=== PATIENT | female | born 1955 | race Caucasian/White ===

== ENCOUNTER 2022-06-21 09:53 | Day surgery (SDC) | payer MEDICARE, OTHER ==
[~2022-06-21] VITALS: Ht 162.6 cm; Wt 75.8 kg
[2022-06-21] MEDS ORDERED: VENL25 (10:15)
[2022-06-21] MEDS ORDERED: PANT20 (10:16)
[2022-06-21] MEDS ORDERED: ATOR10 (10:16)
[2022-06-21] MEDS ORDERED: LOSA25 (10:17)
[2022-06-21] MEDS ORDERED: PRAV20 (10:17)
--- NOTE | 2022-06-21 10:58 | NUR ---
06/21/22 1058 Silvia Martinez THREE ATTEMPTS AT IV. FIRST ATTEMPT AT IV BY MA IN RIGHT FOREARM INFILTRATED. SECOND ATTEMPT AT IV BY RN IN RIGHT HAND INFILTRATED. THIRD ATTEMPT AT IV BY RN IN LEFT HAND SUCCESSFUL.
== END 2022-06-21 12:18 | disposition home or self-care (01) ==
LOC: ORSCSDS 09:53
PROVIDERS: Internal Medicine Gastroenterology
PROC: 0DBP8ZX Excision of Rectum, Via Natural or Artificial Opening Endoscopic, Diagnostic (ICD-10-PCS; principal; 2022-06-21 11:15)
DX: Z12.11 Encounter for screening for malignant neoplasm of colon (principal); K63.5 Polyp of colon; K64.4 Residual hemorrhoidal skin tags; I10 Essential (primary) hypertension; Z79.899 Other long term (current) drug therapy
CPT/HCPCS: 88305; J2250; J2704; J7120

== ENCOUNTER → 2025-05-24 | Outpatient (CLI) | payer MEDICARE, OTHER ==
[~2025-05-24] MED LIST: ATOR10; LOSA25; PANT20; PRAV20; VENL25
[2025-05-24 19:27] LABS: BASOPHILS ABSOLUTE AUTO 0.13 K/mm3 (0.00-0.23); BASOPHILS PERCENT AUTO 2 % (0-2); EOSINOPHILS ABSOLUTE AUTO 0.29 K/mm3 (0.00-0.68); EOSINOPHILS PERCENT AUTO 4 % (0-6); Hematocrit 40.1 % (33.0-51.0); Hemoglobin 13.1 g/dL (11.5-16.0); IMMATURE GRAN ABSOLUTE AUTO 0.03 K/mm3 (0.00-0.10); IMMATURE GRAN PERCENT AUTO 0 % (0-1); LYMPHOCYTES ABSOLUTE AUTO 2.16 K/mm3 (0.84-5.20); LYMPHOCYTES PERCENT AUTO 27 % (21-46); MONOCYTES ABSOLUTE AUTO 0.62 K/mm3 (0.16-1.47); MONOCYTES PERCENT AUTO 8 % (4-13); Mean Corpuscular HGB Conc 32.7 g/dL (31.5-36.5); Mean Corpuscular Volume 91 fL (80-100); NEUTROPHILS ABSOLUTE AUTO 4.74 K/mm3 (1.96-9.15); NEUTROPHILS PERCENT AUTO 60 % (41-73); NRBC ABSOLUTE 0.00 K/mm3 (0.00-0.02); NRBC Auto 0.0 /100 WBC (0.0-0.2); Platelet Count 321 K/mm3 (150-400); RDW Coefficient Variation 13.0 % (11.7-14.2); RDW Standard Deviation 43.3 fL (35.1-46.3)
[2025-05-24 19:37] LABS: Alanine Aminotransfer (ALT/SGP 33 U/L (12-78); Albumin, Blood 4.1 g/dL (3.4-5.0); Albumin/Globulin Ratio 1.1 (0.8-1.8); Anion Gap 8 mmol/L (3-11); Aspartate Aminotrans (AST/SGOT 18 U/L (12-37); Bilirubin, Total 0.8 mg/dL (0.1-1.0); Blood Urea Nitrogen 19 mg/dL (8-24); CHOL/HDL RATIO 3.0; CO2, Blood 28 mmol/L (21-32); Calcium, Blood 9.7 mg/dL (8.5-10.1); Chloride, Blood 108 mmol/L (98-108); Cholesterol 179 mg/dL (50-200); Creatinine, Blood 1.10 mg/dL (0.40-1.00); Globulin, Blood 3.9 g/dL (2.2-4.0); Glucose, Blood 97 mg/dL (70-99); HDL Cholesterol 60 mg/dL (>39); LDL/HDL RATIO 1.5; Low Density Lipoprotein Chol 92 mg/dL (0-110); Potassium, Blood 4.6 mmol/L (3.5-5.5); Sodium, Blood 139 mmol/L (136-145); Total Protein, Blood 8.0 g/dL (6.4-8.2); Triglycerides 134 mg/dL (30-160); Very Low Density Lipoprot Chol 26 mg/dL (6-32)
== END ==
LOC: LAB 13:35 → LAB SHORT 13:35
PROVIDERS: Student in an Organized Health Care Education/Training Program
DX: E78.2 Mixed hyperlipidemia (principal); I10 Essential (primary) hypertension; F32.9 Major depressive disorder, single episode, unspecified
CPT/HCPCS: 80053; 80061; 85025